=== PATIENT | male | born 1955 | race Asian ===

== ENCOUNTER 2019-01-10 09:59 | Day surgery (SDC) | payer OTHER ==
[2019-01-09 15:34] VITALS: BMI 24.7
[2019-01-10] MEDS ORDERED: MIDAZOLAM HCL 2 MG/2 ML SINGLE DOSE VIAL ONE (10:42)
[2019-01-10] MEDS ORDERED: PROPOFOL 20 ML ONE (10:42)
[2019-01-10] MEDS ORDERED: ACETAMINOPHEN 325 MG TABLET (FP) PO PRN (11:12)
[2019-01-10] MEDS ORDERED: ONDANSETRON 4 MG/2 ML VIAL IVPUSH PRN (11:12)
[2019-01-10] MEDS ORDERED: LACTATED RINGERS SOLUTION 1,000 ML IV SCH (11:15)
[2019-01-10] MEDS ORDERED: ceFAZolin SODIUM 1 GM VIAL ONE (11:52)
[2019-01-10] MEDS ORDERED: LIDOCAINE HCL 1%, 10 MG/ML (20ML VIAL) NR ONE (11:56)
[2019-01-10] MEDS ORDERED: BUPIVACAINE HCL/PF 0.25% (2.5MG/ML) 10 ML VIAL IJ ONE (11:56)
[2019-01-10] MEDS ORDERED: DEXAMETHASONE SOD PHOSPHATE 4 MG/1 ML VIAL ONE (11:56)
[2019-01-10] MEDS ORDERED: KETOROLAC TROMETHAMINE 30 MG/1 ML VIAL ONE (12:05)
--- NOTE | 2019-01-10 12:48 | OP ---
DATE OF OPERATION: 01/10/2019 PREOPERATIVE DIAGNOSIS: Umbilical hernia. POSTOPERATIVE DIAGNOSIS: Umbilical hernia. PROCEDURE: Exploration, removal of the umbilical hernia contents, omentum and repair with a mesh. SURGEON: Mena Comer MD ANESTHESIA: Local with sedation. PROCEDURE IN DETAIL: Patient was brought into the operating room. Intravenous antibiotics and local were given. Elliptical incision was made on the bottom of the umbilicus and the incision was taken down to the fascia. The hernia sac was identified. The omentum was removed which was incarcerated and the other part of the sac was put back into the abdominal cavity, and the fascia was inspected on the inside, found to be free of any adhesion to the omentum, following which a 4.3 cm disc was applied, was placed into the abdominal cavity and the 2 Dexon tails were sutured to the fascia. Subcutaneous tissue and skin were closed. Patient went to the recovery room in stable condition. MENA COMER M.D. [id number] cc: Dr. Pruitt
[2019-01-10 13:04] VITALS: TEMP 97.8
[2019-01-10] MEDS ORDERED: ACETAMINOPHEN 325 MG TABLET (FP) ONE (15:54)
[2019-01-10 18:08] VITALS: BP 146/87; PULSE 68
--- NOTE | 2019-01-11 19:05 | PATH ---
Surgical Pathology Report Patient Name: SHAYLA VILLANUEVA [facility]. Rec. #: [id number] /Age/Gender: 1955 (Age: 63) / M Account: [id number] Location: [facility] SURGICAL Taken: 01/10/2019 Received: 01/10/2019 Reported: 01/11/2019 Physicians: Mena Comer M.D. Specimen(s) Received UMBILICAL HERNIA SAC Clinical History Umbilical hernia Final Diagnosis UMBILICAL HERNIA SAC, REPAIR: HERNIA SAC. Electronically Signed Greta Shaw M.D. Gross Description Received in formalin labeled "umbilical hernia sac" is a fibroadipose tissue measuring 2.5 x 2 x 1.2 cm. Manager Of Pharmacy sections are submitted one cassette. MLSZ/01/10/2019 sanemelia/01/10/2019
== END 2019-01-10 16:45 | disposition home or self-care (01) ==
LOC: JASU-SURG 09:59
PROVIDERS: ATTEND Surgery Vascular Surgery
PROC: 0WUF0JZ Supplement Abdominal Wall with Synthetic Substitute, Open Approach (ICD-10-PCS; principal; 2019-01-10 11:00)
DX: K42.9 Umbilical hernia without obstruction or gangrene (principal)
CPT/HCPCS: 88302-TC; 94760